=== PATIENT | male | born 1975 | race Caucasian/White ===

== ENCOUNTER 2020-06-22 17:56 | Emergency (ER) | payer BC ==
[~2020-06-22] VITALS: Ht 170.2 cm; Wt 73.0 kg
--- NOTE | 2020-06-22 17:56 | NUR ---
Patient BIBA ALS, transferred to bed 11. RN evaluating the patient at bedside.
--- NOTE | 2020-06-22 18:18 | NUR ---
45 Y/O MALE BIBA ALOC FOUND ON FREEWAY PER EMT, [facility] CALLED AND TOLD TO BRING HIM TO ER. PT IS DELUSIONAL, +HALLUCINATIONS, STATES HE "TOOK SOME GOOD STUFF AND I AM NOT SHARING". PT IS A&OX1. PMH: BI-POLAR, HTN NKA
--- NOTE | 2020-06-22 19:20 | NUR ---
PATIENT LEFT WITHOUT BEING SEEN BY DR. FISHER. NO FURTHER CARE PROVIDED FOR PATIENT.
== END 2020-06-22 19:20 | disposition left against medical advice (07) ==
LOC: MED 17:56
DX: R41.82 Altered mental status, unspecified (principal); Z53.21 Procedure and treatment not carried out due to patient leaving prior to being seen by health care provider